=== PATIENT | male | born 1975 | race Caucasian/White ===

== ENCOUNTER 2018-03-15 23:51 | Emergency (ER) | payer BC ==
[~2018-03-15] VITALS: Ht 175.3 cm; Wt 106.6 kg
[~2018-03-15 23:51] MED LIST: ACEASPCAF PO; AMOX250 PO; Amoxicillin875 MG PO; CARI350 PO; CYCL10 PO; Clindamycin HC300 MG PO; Cyclobenzaprine5 MG PO; DIPH25; Flomax0.4 MG PO; HYDACE5 PO; HYDACE5325 PO; IBUP600 PO; IBUP800 PO; NAPR500 PO; NAPR500EC PO; Norco 5-325 Ta1 EACH PO; OXYACE5T PO; PENVK500 PO; PRED10 PO; Percocet 5-3251 EACH PO; Prednisone20 MG PO; RXSULTRIDS PO; SULTRIDS PO; TRAM50 PO; Ultram50 MG PO
[2018-03-16 02:32] LABS: Source, Urine Clean Catch
[2018-03-16 02:38] LABS: Bilirubin, Urine Neg (Neg); Blood, Urine Neg (Neg); Glucose Qualitative, Urine Neg (Neg); Ketones, Urine Neg (Neg); Leukocyte Esterase, Urine Neg (Neg); Nitrite, Urine Neg (Neg); Protein, Urine Neg (Neg); Specific Gravity, Urine 1.015 (1.003-1.022); Urobilinogen, Urine NORM (Normal)
[2018-03-16 02:42] LABS: Appearance, Urine Clear (Clear); Color, Urine Yellow (P-Yellow)
== END 2018-03-16 07:27 | disposition home or self-care (01) ==
LOC: ER 23:51
PROVIDERS: Emergency Medicine
DX: N50.89 Other specified disorders of the male genital organs (principal); N50.82 Scrotal pain
CPT/HCPCS: 76870; 81003; 99284-25

== ENCOUNTER 2018-05-22 21:45 | Emergency (ER) | payer BC ==
[~2018-05-22] VITALS: Ht 175.3 cm; Wt 107.5 kg
[2018-05-22 22:18] LABS: BASOPHILS ABSOLUTE AUTO 0.08 K/mm3 (0.00-0.23); BASOPHILS PERCENT AUTO 1 % (0-2); EOSINOPHILS ABSOLUTE AUTO 0.25 K/mm3 (0.00-0.68); EOSINOPHILS PERCENT AUTO 2 % (0-6); Hemoglobin 15.7 g/dL (13.5-17.5); IMMATURE GRAN ABSOLUTE AUTO 0.03 K/mm3 (0.00-0.10); IMMATURE GRAN PERCENT AUTO 0 % (0-1); LYMPHOCYTES ABSOLUTE AUTO 2.13 K/mm3 (0.84-5.20); LYMPHOCYTES PERCENT AUTO 21 % (21-46); MONOCYTES ABSOLUTE AUTO 0.88 K/mm3 (0.16-1.47); MONOCYTES PERCENT AUTO 9 % (4-13); Mean Corpuscular HGB 28.2 pg (26.0-34.0); Mean Corpuscular HGB Conc 33.4 g/dL (31.5-36.5); Mean Corpuscular Volume 85 fL (80-100); Mean Platelet Volume 9.9 fL (9.1-12.4); NEUTROPHILS PERCENT AUTO 68 % (41-73); Platelet Count 386 K/mm3 (150-400); RDW Coefficient Variation 12.7 % (11.7-14.2); RDW Standard Deviation 39.4 fL (35.1-46.3); Red Blood Cell Count 5.56 M/mm3 (4.30-5.90); White Blood Cell Count 10.37 K/mm3 (4.00-11.30)
[2018-05-22 22:36] LABS: Alanine Aminotransfer (ALT/SGP 44 U/L (12-78); Albumin/Globulin Ratio 1.1 (0.8-1.8); Alk Phos 69 U/L (50-136); Anion Gap 9 mmol/L (6-16); Aspartate Aminotrans (AST/SGOT 33 U/L (12-37); Bilirubin, Total 1.3 mg/dL (0.1-1.0); Blood Urea Nitrogen 9 mg/dL (8-24); Bun/Creatinine Ratio 10.3 (12.0-20.0); CO2, Blood 27 mmol/L (21-32); Calcium, Blood 8.7 mg/dL (8.5-10.1); Chloride, Blood 103 mmol/L (98-108); Creatinine, Blood 0.87 mg/dL (0.60-1.20); Globulin, Blood 3.5 g/dL (2.2-4.0); Glomerular Filtration Rate >60 (60-); Glucose, Blood 111 mg/dL (70-99); Potassium, Blood 3.6 mmol/L (3.5-5.5); Sodium, Blood 139 mmol/L (136-145); Total Protein, Blood 7.5 g/dL (6.4-8.2); Troponin I <0.015 ng/mL (0.000-0.040)
[2018-05-22 22:47] LABS: Source, Urine Clean Catch
[2018-05-22 22:49] LABS: Bilirubin, Urine Neg (Neg); Blood, Urine Neg (Neg); Glucose Qualitative, Urine Neg (Neg); Ketones, Urine Neg (Neg); Leukocyte Esterase, Urine Neg (Neg); Nitrite, Urine Neg (Neg); Protein, Urine Neg (Neg); Specific Gravity, Urine 1.005 (1.003-1.022); Urobilinogen, Urine NORM (Normal); pH, Urine 6.5 (5.0-8.0)
[2018-05-22 22:56] LABS: Appearance, Urine Clear (Clear); Color, Urine Yellow (P-Yellow)
[2018-05-22] MEDS ORDERED: Ativan1 MG PO (23:16)
== END 2018-05-22 23:49 | disposition home or self-care (01) ==
LOC: ER 21:45
PROVIDERS: Emergency Medicine
DX: F41.0 Panic disorder [episodic paroxysmal anxiety] (principal); F43.9 Reaction to severe stress, unspecified
CPT/HCPCS: 36415; 71046; 80053; 81003; 84484; 85025; 93005; 93010; 96374; 99284-25; J2060

== ENCOUNTER 2018-08-09 21:13 | Emergency (ER) | payer BC ==
[~2018-08-09] VITALS: Ht 175.3 cm; Wt 106.6 kg
[~2018-08-09 21:13] MED LIST changes: +Ativan1 MG PO
[2018-08-09 21:34] LABS: BASOPHILS ABSOLUTE AUTO 0.09 K/mm3 (0.00-0.23); BASOPHILS PERCENT AUTO 1 % (0-2); EOSINOPHILS ABSOLUTE AUTO 0.21 K/mm3 (0.00-0.68); EOSINOPHILS PERCENT AUTO 3 % (0-6); Hematocrit 47.3 % (37.0-53.0); Hemoglobin 15.7 g/dL (13.5-17.5); IMMATURE GRAN ABSOLUTE AUTO 0.01 K/mm3 (0.00-0.10); IMMATURE GRAN PERCENT AUTO 0 % (0-1); LYMPHOCYTES ABSOLUTE AUTO 3.31 K/mm3 (0.84-5.20); LYMPHOCYTES PERCENT AUTO 44 % (21-46); MONOCYTES PERCENT AUTO 8 % (4-13); Mean Corpuscular HGB 28.4 pg (26.0-34.0); Mean Corpuscular HGB Conc 33.2 g/dL (31.5-36.5); Mean Corpuscular Volume 86 fL (80-100); Mean Platelet Volume 9.8 fL (9.1-12.4); NEUTROPHILS ABSOLUTE AUTO 3.27 K/mm3 (1.96-9.15); NEUTROPHILS PERCENT AUTO 44 % (41-73); Platelet Count 394 K/mm3 (150-400); RDW Coefficient Variation 12.9 % (11.7-14.2); RDW Standard Deviation 39.8 fL (35.1-46.3); Red Blood Cell Count 5.53 M/mm3 (4.30-5.90); White Blood Cell Count 7.49 K/mm3 (4.00-11.30)
[2018-08-09 22:11] LABS: Alanine Aminotransfer (ALT/SGP 50 U/L (12-78); Albumin, Blood 3.9 g/dL (3.4-5.0); Albumin/Globulin Ratio 1.1 (0.8-1.8); Alk Phos 64 U/L (50-136); Anion Gap 8 mmol/L (6-16); Aspartate Aminotrans (AST/SGOT 34 U/L (12-37); Bilirubin, Total 1.4 mg/dL (0.1-1.0); Blood Urea Nitrogen 8 mg/dL (8-24); Bun/Creatinine Ratio 9.6 (12.0-20.0); CO2, Blood 26 mmol/L (21-32); Calcium, Blood 8.3 mg/dL (8.5-10.1); Chloride, Blood 106 mmol/L (98-108); Creatinine, Blood 0.84 mg/dL (0.60-1.20); Globulin, Blood 3.7 g/dL (2.2-4.0); Glomerular Filtration Rate >60 (60-); Glucose, Blood 90 mg/dL (70-99); Potassium, Blood 3.3 mmol/L (3.5-5.5); Sodium, Blood 140 mmol/L (136-145); Total Protein, Blood 7.6 g/dL (6.4-8.2); Troponin I <0.015 ng/mL (0.000-0.040)
== END 2018-08-09 22:09 | disposition left against medical advice (07) ==
LOC: ER 21:13
PROVIDERS: Emergency Medicine
DX: Z53.21 Procedure and treatment not carried out due to patient leaving prior to being seen by health care provider (principal)
CPT/HCPCS: 71046; 80053; 84484; 85025; 93005; 93010

== ENCOUNTER 2023-09-16 13:22 | Emergency (ER) | payer OTHER ==
[~2023-09-16] VITALS: Ht 175.3 cm; Wt 106.6 kg
[2023-09-16 14:15] VITALS: BP 132/102
[2023-09-16] MEDS ORDERED: Norco 5-325 Ta1 EACH PO (15:29)
[2023-09-16] MEDS ORDERED: Ketorolac Tromethamine 30mg Vial IM ONE (15:30)
== END 2023-09-16 15:35 | disposition home or self-care (01) ==
LOC: ER 13:22
DX: M25.512 Pain in left shoulder (principal); Z98.890 Other specified postprocedural states; X50.9XXA Other and unspecified overexertion or strenuous movements or postures, initial encounter; Y93.89 Activity, other specified
CPT/HCPCS: 73030; 96372; 99283-25; J1885